=== PATIENT | male | born 1950 | race Caucasian/White ===

== ENCOUNTER → 2017-10-21 | Outpatient (REF) ==
[~2017-10-21] MED LIST: ACETAMINOPHEN500 MG PO; ANTI-DIARRHEAL2 MG PO; ANTIVERT 25MG25 MG PO; ASPIR-LOW81 MG PO; ASPIRIN 32325 MG/TAB PO; ATARAX25 MG PO; ATENOLOL25 MG PO; BACTROBAN 22GM22 GM TOP; BACTROBAN 22GM22 GM TP; BENADRYL 50MG C50 MG PO; BENADRYL25 M2 PO; BENZTROPINE PO; BONINE25 MG PO; CELEBREX 200MG200 MG PO; CIPRO 500MG TA500 MG PO; CLEOCIN HC150 MG/CAP PO; CLEOCIN HCL300 MG PO; COUMADIN 1MG1 MG/TAB PO; COUMADIN 2MG2 MG/TAB PO; COUMADIN 3MG3 MG/TAB PO; COUMADIN4 MG PO; DULCOLAX S10 MG/SUPP RC; FISH OIL1000 MG PO; FLOMAX 0.40.4 MG/CAP PO; GAS RELIEF80 MG PO; GEMCOR600 MG PO; GLUCOSE4 GM PO; HCTZ 25MG TAB25 MG PO; HCTZ 25MG25 MG PO; HUMULIN R 10100 U/ML SC; JANTOVEN2 MG PO; LACTULOSE SYR 10/15 PO; LANTUS100 U/ML SC; LANTUS100 U/ML SQ; LASIX 20MG TABL20 MG PO; LEVAQUIN 5500 MG/TA1 PO; LIPITOR 40MG TA40 MG PO; LIPITOR20 MG PO; LORTAB 5/500 501 TAB PO; LOVENOX 100100 MG/ML SQ; MULTIVITAMIN WI1 CAP PO; NEURONTIN300 MG/CAP PO; NORVASC2.5 MG PO; NOVLOG SQ; NOVOLIN N100 U/ML SC; NOVOLOG 100U100 U/M1; NOVOLOG 100U100 U/M1 SC; NOVOLOG 100U100 U/ML IV; NOVOLOG FLEX100 U/ML SC; NOVOLOG FLEX100 U/ML SQ; OMEGA 31000 MG PO; PAXIL 20MG20 MG PO; PERCOCET 5/321 UDTAB PO; PLAVIX 75MG TAB75 MG PO; POLYETHYLENE GL1 PO6 PO; PRILOSEC 20MG20 MG PO; PRINIVIL10 MG PO; PROAIR HFA0.09 MG/AC IH; PROQUIN XR500 MG PO; RANITIDINE HYD150 MG PO; REFRESH TEARS 115 ML OU; RISPERDAL 2M2 MG/TAB PO; ROBITUSSIN100 MG/5 M PO; SEPTRA DS 8001 TAB PO; TAMIFLU 75MG75 MG PO; TENORMIN100 MG PO; TRICOR145 MG PO; TYLENOL 325MG325 MG PO; TYLENOL PM PO; UNABLE; VICODIN 5/5001 UDTAB PO; VITAMINS PO; WATER PILL; ZANTAC 150MG T150 MG PO; ZESTRIL 20MG TA20 MG; ZOCOR 10MG10 MG PO; ZOCOR40 MG PO; [UNRECOGNIZED DRUG - OTHER] SQ; [UNRECOGNIZED DRUG - OTHER] SQ
[2017-10-21 13:47] LABS: COLLECTION METHOD CLEAN CATCH
[2017-10-21 13:54] LABS: MUCOUS Present /lpf; PH 6 (5-8); SQUAMOUS EPITHELIAL None Seen /hpf; URINE APPEARANCE Clear; URINE BACTERIA None Seen /hpf; URINE BILIRUBIN Negative (NEGATIVE); URINE BLOOD Negative (NEGATIVE); URINE COLOR Amber; URINE GLUCOSE Negative (NEGATIVE); URINE KETONE Negative (NEGATIVE); URINE LEUKOCYTE ESTERASE Negative (NEGATIVE); URINE NITRATE Negative (NEGATIVE); URINE PROTEIN(semi-quant) Negative (NEGATIVE); URINE RBC 0-2 /hpf; URINE UROBILINOGEN >=4.0 mg/dL (NEGATIVE)
== END ==
LOC: ZLAB.WCH 13:46
PROVIDERS: Internal Medicine
DX: N18.3 Chronic kidney disease, stage 3 (moderate) (principal)

== ENCOUNTER → 2017-11-11 | Outpatient (CLI) | payer MEDICARE, OTHER ==
[2017-11-11 13:20] LABS: COLLECTION METHOD CLEAN CATCH
[2017-11-11 13:57] LABS: URINE BACTERIA Occasional /hpf; URINE RBC 0-2 /hpf
[2017-11-11 14:05] LABS: PH 5 (5-8); URINE APPEARANCE Clear; URINE BILIRUBIN Negative (NEGATIVE); URINE BLOOD Negative (NEGATIVE); URINE COLOR Amber; URINE GLUCOSE Negative (NEGATIVE); URINE KETONE Negative (NEGATIVE); URINE LEUKOCYTE ESTERASE 1+ (NEGATIVE); URINE NITRATE Negative (NEGATIVE); URINE PROTEIN(semi-quant) Negative (NEGATIVE); URINE UROBILINOGEN >=4.0 mg/dL (NEGATIVE)
== END ==
LOC: ZLAB.STJ 13:13
PROVIDERS: Internal Medicine
DX: R82.90 Unspecified abnormal findings in urine (principal)